=== PATIENT | male | born 1945 | race Caucasian/White ===

== ENCOUNTER → 2018-09-08 | Outpatient (CLI) | payer MEDICARE ==
[~2018-09-08] MED LIST: REGADENOSON 0.4 MG/5 ML DISP.SYRIN. IV ONE
--- NOTE | 2018-09-10 19:00 | PCVCIMAG ---
APPROVED REPORT Imaging Protocol: Rest Tc-99m/Stress Tc-99m 1 day Study performed: 09/08/2018 09:13:00 Indication: Abnormal EKG, Exertional Fatigue, RBBB Patient Location: Out-Patient Stress Nurse: Ana Paula Bethea RN, Shana Tena RN [employer]:JOHNNY LizMT Ht: 5 ft 7 in Wt: 203 lbs BSA: 2.04 m2 HR: 70 bpm BP: 145/71 mmHg BMI: 31.7 Rhythm: Sinus Rhythm, RBBB Medical History Medical History: Hyperlipidemia Medications: Atorvastatin, Cardura, FLonase Allergies: Mold, Tape Cardiac Risk Factors: Age Pretest Chest Pain Characteristics: No chest pain Exercise History: Indeterminate Resting Data Rest SPECT myocardial perfusion imaging was performed in supine position 45 minutes following the intravenous injection of 10.1 mCi of Tc-99m Sestamibi. Time of rest injection: 0910 Date: 09/08/2018 Administration Route: IV Administration Site: Right AC Pharmacologic Stress Pharmacologic stress test was performed by injecting Regadenoson 0.4 mg IV push over 10-15 seconds immediately followed by the intravenous injection of 34.5 mCi of Tc-99m Sestamibi. Time of stress injection: 1030 Date: 09/08/2018 Administration Route: IV Administration Site: Right AC Gated Stress SPECT was performed 45 minutes after stress injection. The images were gated to evaluate regional wall motion and calculate left ventricular ejection fraction. Stress Test Details Stress Test: Pharmacologic stress testing performed using 0.4 mg of regadenoson per 5 mL given IV over 10 seconds. Reason for pharmacologic stress test: history of Polio. HRMax Heart Rate (APMHR): 145 bpm Resting HR: 70 bpmTarget HR (85% APMHR): 123 bpm Max HR Achieved: 78 bpm % of APMHR: 53 Recovery HR: 83 bpm BP Resting BP: 145/71 mmHg Max BP: 133/64 mmHg Recovery BP: 119/58 mmHg ECG Resting ECG: Sinus Rhythm, RBBB Stress ECG: Sinus Rhythm, RBBB Recovery ECG: Sinus Rhythm, RBBB Clinical Reason for Termination: Completed protocol Stress Symptoms: Dyspnea Exercise duration: 0 min 55 sec Symptoms resolved with caffeine. Stress ECG Conclusion 1. Adequate response to iv lexiscan 2. Inadequate response to iv lexiscan 3. Dyspnea with infusion identified Study Quality Study: Good Study Data Post stress, the left ventricular ejection was 64%.. SSS: 0 SRS: 2 SDS: 0 TID = 1.11. Perfusion No evidence of stress induced ischemia or prior myocardial infarction. Wall Motion Normal left ventricular size and function with no regional wall motion abnormalities. Nuclear Conclusion No evidence of stress induced ischemia or prior myocardial infarction. Normal left ventricular size and function with no regional wall motion abnormalities. Post stress, the left ventricular ejection was 64%. No prior study available for comparison. Interpreted by: Ga Norman MD Electronically Approved: 09/08/2018 16:25:52 <Conclusion> 1. Adequate response to iv lexiscan 2. Inadequate response to iv lexiscan 3. Dyspnea with infusion identified
== END | disposition home or self-care (01) ==
LOC: PCVCIMAG 08:45
PROVIDERS: ATTEND Family Medicine
DX: R94.31 Abnormal electrocardiogram [ECG] [EKG] (principal); R53.83 Other fatigue; I45.10 Unspecified right bundle-branch block; E78.5 Hyperlipidemia, unspecified
CPT/HCPCS: 78452; 93017; A9500; J2785